=== PATIENT | male | born 1945 | race Caucasian/White ===

== ENCOUNTER 2017-05-22 08:25 | Day surgery (SDC) | payer MEDICARE, OTHER ==
[2017-05-22] MEDS ORDERED: Lactated Ringers 1,000 ML IV SCH ×2 (08:30→08:45)
[2017-05-22] MEDS ORDERED: Propofol 200 MG/20 ML SDV IV ONE (10:20)
[2017-05-22] MEDS ORDERED: Midazolam 1 MG/ML 2 ML SDV IV ONE (10:20)
[2017-05-22] MEDS ORDERED: Lidocaine 2% 100 MG/5 ML Syringe IVPUSH ONE (10:20)
--- NOTE | 2017-05-22 10:48 | PCM.OPNOTE ---
- General Post-Op/Procedure Note Date of Surgery/Procedure: 05/22/17 Operative Procedure(s): egd with biopsy Findings: gastroduodenitis esophagitis Pre Op Diagnosis: epigastric abd pain Post-Op Diagnosis: gastroduodenitis. esophagitis Anesthesia Technique: MAC Primary Surgeon: Manolo Tavera Anesthesia Provider: Rj Coreas Pathology: stomach esophagus duodenum Complications: None Condition: Good Free Text/Narrative:: see dictation
--- NOTE | 2017-05-22 11:04 | OR ---
DATE OF OPERATION: 05/22/2017 SURGEON: Manolo Tavera MD PROCEDURE PERFORMED: Esophagogastroduodenoscopy with cold forceps biopsy. PREOPERATIVE DIAGNOSIS: Gastritis, esophagitis. POSTOPERATIVE DIAGNOSIS: Gastroduodenitis and esophagitis. INDICATIONS FOR PROCEDURE: This is a 71-year-old white male who was scoped several months ago for epigastric abdominal pain. He was noted to have esophagitis as well as gastritis. He was placed on a proton pump inhibitor and slowly had partial relief. This is persisted despite the fact that he has been given a change in his medication several times. Therefore, he was offered and accepted an EGD to assess the situation. DESCRIPTION OF PROCEDURE: After an excellent IV sedation was administered, the bite block was inserted. The flexible endoscope was passed without difficulty down the patient's esophagus into the stomach. The stomach was insufflated. Scope was passed through the pylorus to the second portion of the duodenum and slowly withdrawn. The following findings were noted. First portion of the duodenum demonstrates duodenitis stomach, diffuse gastritis, biopsies were taken. GE junction measured at 40 cm. There was some evidence of some esophagitis and biopsies were taken of this area as well. The remainder of the esophageal exam was unremarkable. The stomach was deflated. The scope was removed. The patient tolerated the procedure well and was taken to recovery room in good condition. /[id number] /EAGLEL
== END 2017-05-22 11:15 | disposition home or self-care (01) ==
LOC: FB.SDS 08:25
PROVIDERS: ATTEND Surgery
DX: K29.80 Duodenitis without bleeding (principal); K29.50 Unspecified chronic gastritis without bleeding; K20.9 Esophagitis, unspecified; Z79.899 Other long term (current) drug therapy; F17.210 Nicotine dependence, cigarettes, uncomplicated
CPT/HCPCS: 00740; 43239; 88305; 88313; 88342; J2250; J2704; J7120

== ENCOUNTER 2017-07-13 10:00 | Emergency (ER) | payer MEDICARE, OTHER ==
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
--- NOTE | 2017-07-15 10:30 | CR ---
INDICATION: Cough. CHEST: PA and lateral views of the chest 07/13/2017 revealed the heart to be normal in size and shape. The aorta is tortuous with calcification in the arch. Bony structures appear to be intact. A definite active infiltrate or effusion was not identified. IMPRESSION: No acute process. MTDD
== END 2017-07-13 11:30 | disposition home or self-care (01) ==
LOC: FB.ED 10:00
DX: J40 Bronchitis, not specified as acute or chronic (principal); Z79.899 Other long term (current) drug therapy; F17.210 Nicotine dependence, cigarettes, uncomplicated
CPT/HCPCS: 71046; 87081; 87430; 99283

== ENCOUNTER 2018-07-30 08:04 | Day surgery (SDC) | payer MEDICARE, OTHER ==
[2018-07-30] MEDS ORDERED: Lactated Ringers 1,000 ML IV SCH (08:30)
[2018-07-30] MEDS ORDERED: Sodium Chloride 0.9% 10 ML Syringe FLUSH PRN (08:30)
--- NOTE | 2018-07-30 10:07 | PCM.SN ---
- Free Text/Narrative Note: Pt noted this am to have an irregular heart beat as well as MACARENA that was not noted on exam on Saturday. EKG demonstrated multifocal PVC's lab work was normal. as this is new onset will cancel today's case echocardiogram and holter ordered. follow up with is pcp.
== END 2018-07-30 10:28 | disposition home or self-care (01) ==
LOC: FB.SDS 08:04
PROVIDERS: ATTEND Surgery
DX: K21.0 Gastro-esophageal reflux disease with esophagitis (principal); Z53.8 Procedure and treatment not carried out for other reasons; I49.9 Cardiac arrhythmia, unspecified; K62.89 Other specified diseases of anus and rectum; K62.5 Hemorrhage of anus and rectum; Z87.891 Personal history of nicotine dependence; Z79.899 Other long term (current) drug therapy
CPT/HCPCS: 36415; 80053; 93005; J7120

== ENCOUNTER 2019-08-31 06:39 | Day surgery (SDC) | payer MEDICARE, OTHER ==
[2019-08-31] MEDS ORDERED: Lidocaine 2% 5 ML SDV INJECT ONE (06:40)
[2019-08-31] MEDS ORDERED: Propofol 200 MG/20 ML SDV IV ONE (06:40)
[2019-08-31] MEDS ORDERED: Lactated Ringers 1,000 ML IV SCH (06:45)
[2019-08-31] MEDS ORDERED: Sodium Chloride 0.9% 10 ML Syringe FLUSH PRN (06:45)
--- NOTE | 2019-08-31 09:10 | PCM.OPNOTE ---
- General Post-Op/Procedure Note Date of Surgery/Procedure: 08/31/19 Operative Procedure(s): egd. c scope with cold loop biopsy Findings: nl egd ascending colon polyp Pre Op Diagnosis: hx of melena and brbpr Post-Op Diagnosis: ascending colon polyp Anesthesia Technique: MAC Primary Surgeon: Manolo Tavera Anesthesia Provider: Chapito Borges Pathology: colon polyp Complications: None Condition: Good Free Text/Narrative:: see dictation
--- NOTE | 2019-08-31 14:06 | OR ---
DATE OF OPERATION: 08/31/2019 SURGEON: Manolo Tavera MD PROCEDURE PERFORMED: Upper endoscopy and colonoscopy with cold loop snare biopsy. PREOPERATIVE DIAGNOSIS: History of melena as well as bright red blood per rectum. POSTOPERATIVE DIAGNOSIS: Ascending colon polyp. INDICATIONS FOR PROCEDURE: This is a 73-year-old white male who has had a longstanding history of some bright red blood per rectum completing a cardiac workup. This precluded a timely colonoscopy for his bright red blood. In addition, on recent followup, he notes some intermittent melena as well, and he does have a history of esophagitis, gastritis. He was offered and accepted an EGD as well as a colonoscopy. DESCRIPTION OF OPERATION: After an excellent IV sedation was then administered, bite block was inserted. Flexible endoscope was passed without difficulty down the patient's esophagus into the stomach. Stomach was insufflated. Scope passed through the pylorus, second portion of duodenum and slowly withdrawn. The following findings were noted. Duodenum is unremarkable. Stomach is unremarkable. Esophagus is unremarkable. Stomach was deflated. Scope was removed. Our attention was then turned to the patient's colon. Digital rectal exam was performed. Flexible colonoscope was inserted and advanced to the cecum. Prep was excellent. The following findings were noted. Ascending colon, small polypoid lesion, approximately 5 mm in size, biopsied with cold loop snare and submitted. Transverse colon, unremarkable. Descending colon, unremarkable. Sigmoid and rectum, unremarkable. Results will be sent to the patient by letter. /[id number] /MODL
== END 2019-08-31 09:58 | disposition home or self-care (01) ==
LOC: FB.SDS 06:39
PROVIDERS: ATTEND Surgery
DX: D12.2 Benign neoplasm of ascending colon (principal); Z87.19 Personal history of other diseases of the digestive system; Z79.899 Other long term (current) drug therapy; Z98.890 Other specified postprocedural states
CPT/HCPCS: 43235; 45385; 88305; J2001; J2704; J7120

== ENCOUNTER 2023-09-17 06:48 | Day surgery (SDC) | payer MEDICARE, OTHER ==
[~2023-09-17 06:48] MED LIST: Lactated Ringers 1,000 ML IV PRN
[2023-09-17] MEDS ORDERED: fentaNYL 100 MCG/2 ML SDV IV ONE (06:49)
[2023-09-17] MEDS ORDERED: Sodium Chloride 0.9% 10 ML Syringe IV ONE (06:49)
[2023-09-17] MEDS ORDERED: Midazolam 1 MG/ML 2 ML SDV IV ONE (06:49)
[2023-09-17] MEDS: Sodium Chloride 0.9% 10 ML Syringe FLUSH PRN (07:48)
[2023-09-17] MEDS: acetaZOLAMIDE 500 MG Cap.ER PO ONE (09:24)
== END 2023-09-17 10:00 | disposition home or self-care (01) ==
LOC: FB.SDS 06:48
PROVIDERS: ATTEND Ophthalmology
DX: H25.9 Unspecified age-related cataract (principal); I10 Essential (primary) hypertension; C61 Malignant neoplasm of prostate; K76.0 Fatty (change of) liver, not elsewhere classified; N40.0 Benign prostatic hyperplasia without lower urinary tract symptoms; Z79.899 Other long term (current) drug therapy; Z87.891 Personal history of nicotine dependence
CPT/HCPCS: 66984; A9270; J2250; J3010; J3490; V2632; 00142; 99100

== ENCOUNTER 2023-12-04 10:48 | Emergency (ER) | payer MEDICARE ==
[2023-12-04] MEDS ORDERED: Sodium Chloride 0.9% 10 ML Syringe FLUSH PRN (10:58)
[2023-12-04 11:22] LABS: BASOPHILS PERCENT AUTO 0.6 % (0.3-3.8); EOSINOPHILS ABSOLUTE AUTO 0.4 x10-3/uL (0.0-0.6); EOSINOPHILS PERCENT AUTO 4.8 % (0.1-6.8); HEMATOCRIT 42.6 % (38.3-50.1); HEMOGLOBIN 13.9 g/dL (12.9-17.7); LYMPHOCYTES ABSOLUTE AUTO 2.5 x10-3/uL (0.5-4.5); LYMPHOCYTES PERCENT AUTO 31.6 % (15.8-45.3); MEAN CORPUSCULAR HGB CONC 32.7 g/dL (28.7-35.3); MEAN CORPUSCULAR VOLUME 95.1 fL (80.8-98.7); MEAN PLATELET VOLUME 6.7 fL (6.7-11.0); MONOCYTES ABSOLUTE AUTO 0.9 x10-3/uL (0.0-1.2); MONOCYTES PERCENT AUTO 11.4 % (5.5-15.2); NEUTROPHILS PERCENT AUTO 51.6 % (40.3-71.8); PLATELET COUNT,PLT 310 x10(3)uL (117-477); RED BLOOD CELL COUNT 4.48 x10(6)uL (3.90-5.90); RED CELL DISTRIBUTION WIDTH 14.5 % (12.4-15.0); WHITE BLOOD CELL COUNT,WBC 7.8 x10-3/uL (3.2-10.1)
[2023-12-04 11:23] LABS: BILIRUBIN,URINE NEGATIVE (NEGATIVE); GLUCOSE,URINE NORMAL (NORMAL); KETONES,URINE NEGATIVE (NEGATIVE); LEUKOCYTE ESTERASE,URINE NEGATIVE (NEGATIVE); NITRITE,URINE NEGATIVE (NEGATIVE); OCCULT BLOOD,URINE NEGATIVE (NEGATIVE); PROTEIN,URINE NEGATIVE (NEGATIVE); UROBILINOGEN,URINE NORMAL (NEGATIVE)
[2023-12-04 11:25] LABS: BLOOD UREA NITROGEN,BUN 16 mg/dL (7-18); CALCIUM 9.5 mg/dL (8.6-10.2); CARBON DIOXIDE,CO2 31 mmol/L (21-32); CHLORIDE,CL 102 mmol/L (100-110); ESTIMATED GFR 78 mL/min (>60); GLUCOSE RANDOM 72 mg/dL (80-116); POTASSIUM,K 4.7 mmol/L (3.5-5.3); SODIUM,NA 139 mmol/L (135-145)
[2023-12-04 11:26] LABS: APPEARANCE,URINE CLEAR (CLEAR); COLOR,URINE YELLOW (YELLOW)
[2023-12-04 11:30] LABS: A/G RATIO 0.9; ALANINE AMINOTRANSFERASE,ALT 24 U/L (12-36); ALBUMIN 3.5 g/dL (3.2-4.6); ALKALINE PHOSPHATASE 83 IU/L (56-112); AMYLASE 54 U/L (25-115); ASPARTATE AMNIOTRANSFERASE,AST 18 IU/L (5-25); BILIRUBIN TOTAL 0.4 mg/dL (0.1-1.3); PROTEIN TOTAL,TP 7.6 g/dL (6.0-8.0)
[2023-12-04] MEDS: Sodium Chloride 0.9% 1,000 ML IV SCH (11:34)
[2023-12-04] MEDS: Iopamidol 755 Mg/ML 100 ML Bottle IV SCH (12:14)
== END 2023-12-04 12:45 | disposition home or self-care (01) ==
LOC: FB.ED 10:48
DX: R10.32 Left lower quadrant pain (principal); I10 Essential (primary) hypertension; E78.00 Pure hypercholesterolemia, unspecified; Z79.899 Other long term (current) drug therapy
CPT/HCPCS: 36415; 74177; 80053; 81003; 82150; 83690; 85025; 96360; 99283; 99284; J7030; Q9967

== ENCOUNTER 2025-02-02 02:17 | Emergency (ER) | payer MEDICARE ==
[2025-02-02 03:06] LABS: BASOPHILS ABSOLUTE AUTO 0.1 x10-3/uL (0.0-0.3); BASOPHILS PERCENT AUTO 1.0 % (0.3-3.8); EOSINOPHILS ABSOLUTE AUTO 0.3 x10-3/uL (0.0-0.6); EOSINOPHILS PERCENT AUTO 3.9 % (0.1-6.8); LYMPHOCYTES ABSOLUTE AUTO 2.3 x10-3/uL (0.5-4.5); LYMPHOCYTES PERCENT AUTO 30.4 % (15.8-45.3); MEAN PLATELET VOLUME 7.0 fL (6.7-11.0); MONOCYTES ABSOLUTE AUTO 1.0 x10-3/uL (0.0-1.2); MONOCYTES PERCENT AUTO 12.7 % (5.5-15.2); NEUTROPHILS ABSOLUTE AUTO 4.0 x10-3/uL (1.7-6.9); NEUTROPHILS PERCENT AUTO 52.0 % (40.3-71.8); PLATELET COUNT,PLT 235 x10(3)uL (117-477); RED BLOOD CELL COUNT 4.32 x10(6)uL (3.90-5.90); RED CELL DISTRIBUTION WIDTH 15.4 % (12.4-15.0); WHITE BLOOD CELL COUNT,WBC 7.6 x10-3/uL (3.2-10.1)
[2025-02-02 03:09] LABS: BLOOD UREA NITROGEN,BUN 22 mg/dL (7-18); CARBON DIOXIDE,CO2 26 mmol/L (21-32); CHLORIDE,CL 101 mmol/L (100-110); CREATININE 1.3 mg/dL (0.70-1.30); EST CRCL DRUG DOSING (CG) 42.26 mL/min; ESTIMATED GFR 56 mL/min (>60); GLUCOSE RANDOM 106 mg/dL (80-116); POTASSIUM,K 3.9 mmol/L (3.5-5.3); SODIUM,NA 136 mmol/L (135-145)
[2025-02-02 03:13] LABS: GLUCOSE,URINE NORMAL (NORMAL); OCCULT BLOOD,URINE NEGATIVE (NEGATIVE)
[2025-02-02 03:15] LABS: APPEARANCE,URINE CLEAR (CLEAR)
[2025-02-02 03:21] LABS: A/G RATIO 1.1; ALANINE AMINOTRANSFERASE,ALT 28 U/L (12-36); ASPARTATE AMNIOTRANSFERASE,AST 20 IU/L (5-25); BILIRUBIN TOTAL 0.2 mg/dL (0.1-1.3); PROTEIN TOTAL,TP 7.4 g/dL (6.0-8.0)
[2025-02-02] MEDS ORDERED: Naloxone 0.4 MG/ML SDV IVPUSH PRN (03:41)
[2025-02-02] MEDS: fentaNYL 100 MCG/2 ML SDV IVPUSH ONE (03:46)
[2025-02-02] MEDS: Sodium Chloride 0.9% 10 ML Syringe FLUSH PRN (03:47)
[2025-02-02] MEDS: Iopamidol 755 Mg/ML 100 ML Bottle IV SCH (04:16)
== END 2025-02-02 05:48 | disposition home or self-care (01) ==
LOC: FB.ED 02:17
DX: K59.00 Constipation, unspecified (principal); C34.91 Malignant neoplasm of unspecified part of right bronchus or lung; R14.0 Abdominal distension (gaseous); I10 Essential (primary) hypertension; Z87.891 Personal history of nicotine dependence; Z79.899 Other long term (current) drug therapy; E78.00 Pure hypercholesterolemia, unspecified
CPT/HCPCS: 36415; 71275; 74177; 80053; 81003; 83605; 83690; 83735; 84484; 85025; 85379; 86140; 93005; 96374; 96375; 99285; A9270; J2765; J3010; Q9967

== ENCOUNTER 2025-04-14 07:05 | Day surgery (SDC) | payer MEDICARE ==
[2025-04-14] MEDS ORDERED: Propofol 200 MG/20 ML SDV IV ONE (07:06)
[2025-04-14] MEDS ORDERED: Sodium Chloride 0.9% 10 ML Syringe FLUSH PRN (07:42)
[2025-04-14] MEDS: Lactated Ringers 1,000 ML IV SCH (07:54)
== END 2025-04-14 09:43 | disposition home or self-care (01) ==
LOC: FB.SDS 07:05
PROVIDERS: ATTEND Surgery
DX: Z12.11 Encounter for screening for malignant neoplasm of colon (principal); D12.6 Benign neoplasm of colon, unspecified; K63.89 Other specified diseases of intestine; K57.30 Diverticulosis of large intestine without perforation or abscess without bleeding; I10 Essential (primary) hypertension; Z79.899 Other long term (current) drug therapy; Z87.891 Personal history of nicotine dependence; Z86.0101 Personal history of adenomatous and serrated colon polyps
CPT/HCPCS: 00811; 45381; 45384; 45385; 88305; 99100; A9270; J2704; J7120